=== PATIENT | male | born 1980 | race Caucasian/White ===

== ENCOUNTER → 2020-05-12 09:14 | Outpatient (BNVA) | payer BC, SELFPAY | PROVIDERS: Family Provider Family Medicine; PCP Family Medicine; Visit Provider Family Medicine | DX: E34.9 Endocrine disorder, unspecified (principal) | CPT/HCPCS: 80053; 84403; 85025 ==

== ENCOUNTER → 2020-07-09 11:08 | Outpatient (BNVA) | payer BC, SELFPAY | PROVIDERS: Family Provider Family Medicine; PCP Family Medicine; Visit Provider Family Medicine | DX: I10 Essential (primary) hypertension (principal); M10.9 Gout, unspecified; M51.16 Intervertebral disc disorders with radiculopathy, lumbar region; E29.1 Testicular hypofunction; M51.9 Unspecified thoracic, thoracolumbar and lumbosacral intervertebral disc disorder | CPT/HCPCS: 80053; 84550 ==

== ENCOUNTER → 2020-08-15 08:05 | Outpatient (BNVA) | payer BC, SELFPAY | PROVIDERS: Family Provider Family Medicine; PCP Family Medicine; Visit Provider Family Medicine | DX: M10.9 Gout, unspecified (principal) | CPT/HCPCS: 84550; 84560 ==

== ENCOUNTER → 2020-10-28 14:01 | Outpatient (BNVA) | payer BC, SELFPAY | PROVIDERS: Family Provider Family Medicine; PCP Family Medicine; Visit Provider Family Medicine | DX: Z20.822 Contact with and (suspected) exposure to COVID-19 (principal); R50.9 Fever, unspecified | CPT/HCPCS: 87635 ==

== ENCOUNTER → 2021-10-21 08:31 | Outpatient (BNVA) | payer BC, SELFPAY | PROVIDERS: Family Provider Family Medicine; PCP Family Medicine; Visit Provider Family Medicine | DX: E29.1 Testicular hypofunction (principal); E34.9 Endocrine disorder, unspecified; I10 Essential (primary) hypertension | CPT/HCPCS: 80053; 84403; 84550; 85025 ==

== ENCOUNTER 2022-08-31 03:49 | Emergency (ER) | payer BC, SELFPAY ==
[2022-08-31 04:08] VITALS: BP 162/116; PULSE 123; RESP 16; TEMP 36.8; O2SAT 95
--- NOTE | 2022-08-31 04:18 | XRR_ITS ---
PROCEDURE INFORMATION: Exam: XR Chest Exam date and time: 08/31/2022 4:37 AM Age: 42 years old Clinical indication: Other: AMS; Patient HX: Patient was sent home from work for sudden onset of severe confusion. Coworker states he was unable to state his name or where he lived. Patient still somewhat confused upon exam. Hypertensive on monitor. TECHNIQUE: Imaging protocol: Radiologic exam of the chest. Views: 1 view. COMPARISON: No relevant prior studies available. FINDINGS: Tubes, catheters and devices: EKG monitoring leads overlie the thoracic wall. Lungs: There is incomplete lung expansion and crowding of the vascular markings. There is no evidence of focal pulmonary consolidation. Pleural spaces: No pleural effusion or pneumothorax. Heart/Mediastinum: Normal in size. Bones/joints: No acute fracture is identified. XR/XR chest 1V portable [id number] IMPRESSION: 1. Incomplete inspiration and crowding of the vascular markings. 2. No other acute findings.
--- NOTE | 2022-08-31 04:18 | CTR_ITS ---
PROCEDURE INFORMATION: Exam: CT Head Without Contrast Exam date and time: 08/31/2022 4:41 AM Age: 42 years old Clinical indication: Stroke-like symptoms; Altered mental status/memory loss; Additional info: Patient was sent home from work for sudden onset of severe confusion. Coworker states he was unable to state his name or where he lived. Patient still somewhat confused upon exam. Hypertensive on monitor. TECHNIQUE: Imaging protocol: Computed tomography of the head without contrast. Radiation optimization: All CT scans at this facility use at least one of these dose optimization techniques: automated exposure control; mA and/or kV adjustment per patient size (includes targeted exams where dose is matched to clinical indication); or iterative reconstruction. Other technique: STROKE PROTOCOL was implemented. COMPARISON: No relevant prior studies available. RADIATION DOSE METRICS: Total DLP (mGy-cm): 1091.08 FINDINGS: Brain: There is no evidence of intracranial hemorrhage. No mass effect or midline shift. There is no brain edema. Unremarkable white matter. Cerebral ventricles: The ventricles and sulci are appropriate for the patient's age. Paranasal sinuses: There are no air-fluid levels. Mastoid air cells: The visualized mastoid air cells are well aerated. Bones/joints: No acute fracture. Soft tissues: Unremarkable. CT/CT head wo con* [id number] IMPRESSION: No acute findings. ASSESSMENT: ASPECTS (Radha Stroke Program Early CT Score) is 10.
--- NOTE | 2022-08-31 04:18 | CTR_ITS ---
PROCEDURE INFORMATION: Exam: CTA Head With Contrast, Arteriography Exam date and time: 08/31/2022 4:45 AM Age: 42 years old Clinical indication: Stroke-like symptoms; Altered mental status/memory loss; Additional info: AMS TECHNIQUE: Imaging protocol: Computed tomographic angiography of the head with contrast. Exam focused on the arteries. 3D rendering (Not supervised by radiologist): MIP and/or 3D reconstructed images were created by the technologist. Radiation optimization: All CT scans at this facility use at least one of these dose optimization techniques: automated exposure control; mA and/or kV adjustment per patient size (includes targeted exams where dose is matched to clinical indication); or iterative reconstruction. Contrast material: OMNI 350; Contrast volume: 100 ml; Contrast route: INTRAVENOUS (IV); COMPARISON: CT head wo con* [id number] 08/31/2022 4:41 AM RADIATION DOSE METRICS: Total DLP (mGy-cm): 546.72 FINDINGS: ANTERIOR CIRCULATION: Right internal carotid artery: Intracranial segment is patent with no significant stenosis. No aneurysm. Right middle cerebral artery: No occlusion or significant stenosis. No aneurysm. Right anterior cerebral artery: No occlusion or significant stenosis. No aneurysm. Left internal carotid artery: Intracranial segment is patent with no significant stenosis. No aneurysm. Left middle cerebral artery: No occlusion or significant stenosis. No aneurysm. Left anterior cerebral artery: No occlusion or significant stenosis. No aneurysm. POSTERIOR CIRCULATION: Right vertebral artery: No occlusion or significant stenosis. No aneurysm. Left vertebral artery: No occlusion or significant stenosis. No aneurysm. Basilar artery: No occlusion or significant stenosis. No aneurysm. Right posterior cerebral artery: No occlusion or significant stenosis. No aneurysm. Patent right posterior communicating artery. Left posterior cerebral artery: No occlusion or significant stenosis. No aneurysm. There is origin from the carotid circulation, anatomic variant. Brain: No definite mass, mass effect, or midline shift. Cerebral ventricles: No ventriculomegaly. Bones/joints: Unremarkable. No acute fracture. Soft tissues: Unremarkable. PROCEDURE INFORMATION: Exam: CTA Neck With Contrast Exam date and time: 08/31/2022 4:45 AM Age: 42 years old Clinical indication: Stroke-like symptoms; Altered mental status/memory loss; Additional info: AMS TECHNIQUE: Imaging protocol: Computed tomographic angiography of the neck with contrast. 3D rendering (Not supervised by radiologist): MIP and/or 3D reconstructed images were created by the technologist. Radiation optimization: All CT scans at this facility use at least one of these dose optimization techniques: automated exposure control; mA and/or kV adjustment per patient size (includes targeted exams where dose is matched to clinical indication); or iterative reconstruction. Contrast material: OMNI 350; Contrast volume: 100 ml; Contrast route: INTRAVENOUS (IV); COMPARISON: CT head wo con* [id number] 08/31/2022 4:41 AM RADIATION DOSE METRICS: Total DLP (mGy-cm): 546.72 FINDINGS: Right common carotid artery: No significant stenosis. No dissection or occlusion. Right internal carotid artery: No significant stenosis of the extracranial segment. No dissection or occlusion. Right external carotid artery: No occlusion or significant stenosis of the origin. Left common carotid artery: No significant stenosis. No dissection or occlusion. Left internal carotid artery: No significant stenosis of the extracranial segment. No dissection or occlusion. Left external carotid artery: No occlusion or significant stenosis of the origin. Right vertebral artery: No significant stenosis. No dissection or occlusion. Diffusely hypoplastic right vertebral artery ends in PICA. Left vertebral artery: No significant stenosis. No dissection or occlusion. Widely patent dominant left vertebral. Soft tissues: No significant soft tissue swelling. Bones/joints: No acute fracture. CT/CT angio headneck* [id number] IMPRESSION: No large vessel stenosis or occlusion. IMPRESSION: 1. Normal right and left extracranial internal carotid arteries by NASCET criteria. 2. Widely patent dominant left vertebral artery. 3. Hypoplastic right vertebral artery. REFERENCES: NASCET CRITERIA. The degree of stenosis in the cervical segment of the internal carotid artery is based on NASCET criteria. Normal is no stenosis. Mild is less than 50% stenosis. Moderate is 50-69% stenosis. Severe is 70% to 99% stenosis. Total occlusion is no detectable patent lumen.
[2022-08-31 04:30] VITALS: BP 166/103; PULSE 124; RESP 16; O2SAT 94
--- NOTE | 2022-08-31 04:30 | ED_ITS ---
HPI - Neuro Symptoms/Deficit General: Chief Complaint: Altered Mental Status Stated Complaint: Sent home from work little confused Time Seen by Provider: 08/31/22 03:55 Source: patient Mode of arrival: ambulatory Limitations: no limitations History of Present Illness: 42-year-old male states that he had confusion at work states he went to work at 8:30 PM that was last known normal he states he does not really remember going to work does not remember anything about work a coworker noticed that he was confused he could even tell him where he lived called his had brought him up here patient's currently at his baseline he states he feels improved he does not remember what happened he denies any headache he denies any weakness denies any worsening improving factors. Associated symptoms: Deny chest pain, headache(s), nausea or vomiting Review of Systems Const: Denies: fever(s), chills, body aches or change in appetite Eyes: Denies: blurry vision or eye discomfort ENMT: Denies: throat pain or dental pain Card: Denies: chest pain Resp: Denies: dyspnea GI: Denies: abdominal pain, nausea, vomiting or diarrhea : Denies: dysuria Musc: Denies: neck pain or back pain Skin/Breast: Denies: rash Neuro: Reports: confusion; Denies: headache(s) Psych: Denies: depression Sadiq/Lymph: Denies: easy bruising All/Imm: Denies: urticaria PFSH ED PFSH: Medical History Essential hypertension Hypogonadism in male Lumbar disc disease Testosterone deficiency Social History (Updated 08/31/22 @ 14:15 by Hodan Harrington LPN) Smoking and tobacco status: current every day smoker smokeless tobacco Alcohol intake: current Alcohol intake frequency: holidays/special occasions only Substance/Drug Use: never Adopted: No Caregiver/support person: No Lives independently: No Household members: spouse service: No Current occupational status: employed Sexually active: Yes Current gender identity: Male NIH stroke score NIHSS: Level Of Consciousness - 1a: 0 Level Of Consciousness Questions - 1b: Both Correct Level Of Consciousness Commands - 1c: Both Correct Best Gaze - 2: Normal Visual Prieto - 3: No Visual Loss Facial Palsy - 4: Normal Motor Arm Right - 5: No Drift Motor Arm Left - 5: No Drift Motor Leg Right - 6: No Drift Motor Leg Left - 6: No Drift Limb Ataxia - 7: Absent Sensory - 8: Normal Best Language - 9: No Aphasia Dysarthia - 10: Normal Extinction And Inattention - 11: 0 Score: Total Score: 0 Physical Exam Const: COMMON NORMALS: no acute distress, patient oriented x3 and healthy appearing HENMT: COMMON NORMALS: normocephalic and atraumatic HEAD & SCALP: normocephalic and atraumatic Eye: COMMON NORMALS: Equal, round and reactive pupils present and EOMs intact bilaterally PUPIL: Yes Equal, round and reactive pupils present Neck/C-Spine: COMMON NORMALS: full ROM and supple Chest: COMMONS NORMALS: normal inspection of the chest and normal palpation of entire chest wall Resp: COMMON NORMALS: normal respiratory effort, No retractions, No use of accessory muscles and clear to auscultation bilaterally AUSCULTATION: clear to auscultation bilaterally Cardio: COMMON NORMALS: regular rate, regular rhythm and No murmurs present (Cardio) RATE: regular rate RHYTHM: regular rhythm GI: COMMON NORMALS: Normal to inspection, nondistended, normoactive bowel sounds present, Soft to palpation, non-tender and no masses PALPATION: Yes Soft to palpation Extremity: COMMON NORMALS: normal to inspection and full ROM Neuro: COMMON NORMALS: patient oriented x3, moves all extremities and no focal motor deficits SPEECH: speech normal MOTOR EXAM: 5/5 motor strength present throughout Psych: COMMON NORMALS: mental status grossly normal, Normal thought process present and cooperative THOUGHT PROCESS: Normal thought process present Skin: COMMON NORMALS: no rashes or lesions noted and no wounds GENERAL SKIN EXAM: no rashes or lesions noted Course Vital Signs: Vital signs: Vital Signs Temperature 98.2 F 08/31/22 04:08 Pulse Rate 98 08/31/22 05:40 Respiratory Rate 17 08/31/22 05:40 Blood Pressure 162/98 08/31/22 05:40 Pulse Oximetry 96 08/31/22 05:40 Oxygen Delivery Me thod 08/31/22 04:30 MDM - Neuro Symptoms/Deficit Medical Decision Making Patient presents here with a period of amnesia he has been well-appearing here he is answering all my questions appropriately his neuro exam is benign blood work CT is normal no signs of a stroke I did offer him admission for this amnesia he states he feels improved I feel he stable for discharge he is to fo llow-up with PCP and return if worsening he understands agrees to plan. Lab Data 08/31/22 04:35 08/31/22 04:35 Radiology Impressions Chest X-Ray 08/31/22 04:18 IMPRESSION: 1. Incomplete inspiration and crowding of the vascular markings. 2. No other acute findings. Head CT 08/31/22 04:18 IMPRESSION: No acute findings. ASSESSMENT: ASPECTS (Radha Stroke Program Early CT Score) is 10. Head/Neck CTA 08/31/22 04:18 IMPRESSION: No large vessel stenosis or occlusion. IMPRESSION: 1. Normal right and left extracranial internal carotid arteries by NASCET criteria. 2. Widely patent dominant left vertebral artery. 3. Hypoplastic right vertebral artery. REFERENCES: NASCET CRITERIA. The degree of stenosis in the cervical segment of the internal carotid artery is based on NASCET criteria. Normal is no stenosis. Mild is less than 50% stenosis. Moderate is 50-69% stenosis. Severe is 70% to 99% stenosis. Total occlusion is no detectable patent lumen. Laboratory Results WBC 13.5 10^3/uL (4.0-10.0) H 08/31/22 04:35 RBC 5.00 10^6/uL (4.1-5.3) 08/31/22 04:35 Hgb 16.2 g/dL (11.7-16.6) 08/31/22 04:35 Hct 47.9 % (42.0-52.0) 08/31/22 04:35 MCV 95.8 fl (80-94) H 08/31/22 04:35 MCH 32.4 pg (28.0-34.0) 08/31/22 04:35 MCHC 33.8 g/dL (30.0-36.0) 08/31/22 04:35 RDW 12.3 % (12.1-15.1) 08/31/22 04:35 Plt Count 338 10^3/cmm (130-400) 08/31/22 04:35 MPV 9.6 fL (7.4-10.4) 08/31/22 04:35 Neut % (Auto) 82.5 % 08/31/22 04:35 Lymph % (Auto) 11.0 % 08/31/22 04:35 [place] % (Auto) 5.8 % 08/31/22 04:35 Eos % (Auto) 0.0 % 08/31/22 04:35 Baso % (Auto) 0.4 % 08/31/22 04:35 Neut # (Auto) 11.16 10^3/uL (1.8-7.7) H 08/31/22 04:35 Lymph # (Auto) 1.5 10^3/uL (0.8-4.8) 08/31/22 04:35 [place] # (Auto) 0.8 10^3/uL (0.2-0.9) 08/31/22 04:35 Eos # (Auto) 0.0 10^3/uL (0.0-0.8) 08/31/22 04:35 Baso # (Auto) 0.1 10^3/uL (0.0-0.1) 08/31/22 04:35 Nucleated RBC % (auto) 0 % 08/31/22 04:35 Nucleated RBCs # 0.0 /100WBC 08/31/22 04:35 PT 13.90 SECONDS (12.1-14.9) 08/31/22 04:35 INR 1.03 (0.8-1.2) 08/31/22 04:35 Sodium 138 mmol/L (136-145) 08/31/22 04:35 Potassium 4.0 mmol/L (3.5-5.1) 08/31/22 04:35 Chloride 100 mmol/L (98-107) 08/31/22 04:35 Carbon Dioxide 25 mmol/L (22-29) 08/31/22 04:35 Anion Gap 17.0 (5-19) 08/31/22 04:35 BUN 13 mg/dL (6-20) 08/31/22 04:35 Creatinine 0.8 mg/dL (0.7-1.2) 08/31/22 04:35 GFR Calculation 105.5 mL/min (90-130) 08/31/22 04:35 Glucose 149 mg/dL (65-115) H 08/31/22 04:35 POC Glucose 140 mg/dL (70-110) H 08/31/22 04:33 Calculated Osmolality 289 mOsm/kg (285-295) 08/31/22 04:35 Calcium 10.3 mg/dL (8.5-10.5) 08/31/22 04:35 Total Bilirubin 0.5 mg/dL (0.15-1.2) 08/31/22 04:35 AST 36 U/L (0-40) 08/31/22 04:35 ALT 78 U/L (0-41) H 08/31/22 04:35 Alkaline Phosphatase 63 U/L (40-130) 08/31/22 04:35 Total Protein 7.6 g/dL (6.6-8.7) 08/31/22 04:35 Albumin 5.0 g/dL (3.5-5.2) 08/31/22 04:35 Globulin 2.6 g/dL (1.3-4.6) 08/31/22 04:35 Urine Opiates Screen Positive ng/mL (Negative) H 08/31/22 05:24 Ur Barbiturates Screen Negative ng/mL (Negative) 08/31/22 05:24 Ur Phencyclidine Scrn Negative ng/mL (Negative) 08/31/22 05:24 Ur Amphetamines Screen Negative ng/mL (Negative) 08/31/22 05:24 U Benzodiazepines Scrn Negative ng/mL (Negative) 08/31/22 05:24 Urine Cocaine Screen Negative ng/mL (Negative) 08/31/22 05:24 U Marijuana (THC) Screen Negative ng/mL (Negative) 08/31/22 05:24 Ethyl Alcohol < 10 mg/dL (0-10) 08/31/22 04:35 EKG Data EKG 1: I personally reviewed and interpreted this EKG as follows: EKG interpretation date: 08/31/22 EKG interpretation time: 04:56 Interpretation: sinus tach hr [address] or t wave abnormalities qrs 86 qtc 347 Discharge Plan Discharge Patient Disposition: Home Clinical Impression: Acute confusion Condition: Stable Prescriptions: No Action allopurinol 300 mg tablet See Rx Instructions .ROUTE .COMPLEX Qty: 90 1RF Dose Instruction: TAKE 1 TABLET BY MOUTH EVERY DAY Rx Instructions: TAKE 1 TABLET BY MOUTH EVERY DAY hydrochlorothiazide 25 mg tablet 25 mg PO DAILY 90 Days Qty: 90 1RF lisinopril 20 mg tablet 20 mg PO DAILY 30 Days Qty: 60 5RF hydrocodone-acetaminophen 7.5-325 mg tablet 1 tab PO BID PRN (Reason: pain) 30 Days Qty: 34 0RF Discharge Orders: Discharge ED (Routine); Ordered 08/31/22 Ordered By: Iona Gutierrez Referrals: London Carlin MD [Primary Care Provider] - 1-3 days Discharge Diet: Advance as tolerated Discharge Activity: Resume usual activity Patient Instructions: Confusion Coding Level of Care Code ED [place]drinier Machine Tender for Chg Fwd Exam Comprehensive
--- NOTE | 2022-08-31 04:41 | ECG_ITS ---
[facility] Test Date: 2022-08-31 Pat Name: Tristian Benz Department: Room: Gender: Male [employer]: : 1980 Requested By: Iona Gutierrez Order Number: [id number] Bladimir MD: Leroy Salazar M.D. Measurements Intervals Egan Rate: 111 P: 38 GA: 140 QRS: 26 QRSD: 86 T: 28 QT: 282 QTc: 384 Interpretive Statements SINUS TACHYCARDIA NONSPECIFIC T-WAVE ABNORMALITY ABNORMAL RHYTHM ECG No previous ECG available for comparison Electronically Signed On 08-31-2022 20:25:03 [employer]EXTON HELPER by Leroy Salazar M.D. [id number]
[2022-08-31 04:43] LABS: Basophils # 0.1 10^3/uL (0.0-0.1); Basophils % 0.4 %; Hematocrit 47.9 % (42.0-52.0); Hemoglobin 16.2 g/dL (11.7-16.6); Lymphocytes # 1.5 10^3/uL (0.8-4.8); Mean Corpuscular HGB Conc 33.8 g/dL (30.0-36.0); Mean Corpuscular Hemoglobin 32.4 pg (28.0-34.0); Mean Corpuscular Volume 95.8 fl (80-94); Mean Platelet Volume 9.6 fL (7.4-10.4); Monocytes # 0.8 10^3/uL (0.2-0.9); Monocytes % 5.8 %; Neutrophils # 11.16 10^3/uL (1.8-7.7); Neutrophils % 82.5 %; Nucleated Red Blood Cells % 0 %; Platelet Count 338 10^3/cmm (130-400); Red Cell Distribution Width 12.3 % (12.1-15.1); White Blood Count 13.5 10^3/uL (4.0-10.0)
[2022-08-31 04:49] LABS: Glucose Point of Care 140 mg/dL (70-110)
[2022-08-31] MEDS: iohexol 350 mg/mL 500 mL Btl (per mL) IV (04:54)
[2022-08-31 04:58] VITALS: PULSE 114; O2SAT 95
[2022-08-31 05:00] VITALS: BP 161/97; PULSE 113; RESP 19; O2SAT 95
[2022-08-31 05:06] LABS: INR 1.03 (0.8-1.2)
[2022-08-31] MEDS: labetalol 5 mg/mL SDV 20mL 10 MG IVP (05:06)
[2022-08-31 05:12] LABS: Alanine Aminotransferase 78 U/L (0-41); Alkaline Phosphatase 63 U/L (40-130); Aspartate Amino Transferase 36 U/L (0-40); Blood Urea Nitrogen 13 mg/dL (6-20); Calcium 10.3 mg/dL (8.5-10.5); Carbon Dioxide 25 mmol/L (22-29); Chloride 100 mmol/L (98-107); Globulin 2.6 g/dL (1.3-4.6); Glomerular Filtration Rate 105.5 mL/min (90-130); Glucose 149 mg/dL (65-115); Osmolality Calculated 289 mOsm/kg (285-295); Sodium 138 mmol/L (136-145); Total Bilirubin 0.5 mg/dL (0.15-1.2); Total Protein 7.6 g/dL (6.6-8.7)
[2022-08-31 05:29] LABS: Alcohol Level < 10 mg/dL (0-10)
[2022-08-31 05:40] VITALS: BP 162/98; PULSE 98; RESP 17; O2SAT 96
[2022-08-31 05:46] LABS: Amphetamines Screen Urine Negative (Negative); Barbiturates Screen Urine Negative (Negative); Benzodiazepines Screen Urine Negative (Negative); Cocaine Screen Urine Negative (Negative); Opiate Screen Urine Positive (Negative); PCP Screen Urine Negative (Negative); THC Screen Urine Negative (Negative)
== END 2022-08-31 05:54 | disposition home or self-care (01) ==
PROVIDERS: Emergency Provider Emergency Medicine; PCP Family Medicine
DX: R41.0 Disorientation, unspecified (principal); I10 Essential (primary) hypertension; F17.210 Nicotine dependence, cigarettes, uncomplicated
CPT/HCPCS: 36416; 70450; 70496; 70498; 71045; 80053; 80306; 80307; 82962; 85025; 85610; 93005; 96374; 99285; J3490; Q9967

== ENCOUNTER → 2023-05-05 11:49 | Outpatient (BNVA) | payer BC, SELFPAY | PROVIDERS: PCP Family Medicine; Visit Provider Family Medicine | DX: I10 Essential (primary) hypertension (principal); E34.9 Endocrine disorder, unspecified; M51.16 Intervertebral disc disorders with radiculopathy, lumbar region | CPT/HCPCS: 80053; 84403; 85025 ==

== ENCOUNTER → 2024-10-01 15:30 | Outpatient (BNVA) | payer BC, SELFPAY | PROVIDERS: PCP Family Medicine; Visit Provider Family Medicine | DX: I10 Essential (primary) hypertension (principal); E34.9 Endocrine disorder, unspecified; M10.9 Gout, unspecified; M51.9 Unspecified thoracic, thoracolumbar and lumbosacral intervertebral disc disorder | CPT/HCPCS: 80053; 84403; 84550; 85025 ==

== ENCOUNTER → 2025-08-26 15:36 | Outpatient (BNVA) | payer BC, SELFPAY | PROVIDERS: PCP Family Medicine; Visit Provider Family Medicine | DX: I10 Essential (primary) hypertension (principal); E34.9 Endocrine disorder, unspecified; E29.1 Testicular hypofunction | CPT/HCPCS: 80053; 84403; 84550; 85025 ==